=== PATIENT | male | born 1960 | race Caucasian/White ===

== ENCOUNTER → 2020-02-26 | Outpatient (CLI) | payer BC ==
[2020-02-26 08:31] LABS: Appearance,Urine Clear (Clear); Bilirubin,Urine Negative (Negative); Blood,Urine Negative (Negative); Color,Urine Yellow; Glucose,Urine (UA) Negative (Negative); Ketones,Urine Negative (Negative); Leukocyte Esterase,Urine Negative (Negative); Nitrite,Urine Negative (Negative); PH, Urine 6.5 (5.0-8.0); Protein,Urine Negative (Negative); Specific Gravity,Urine 1.015 (1.001-1.035); Urobilinogen,Urine <2.0 mg/dL (<2.0)
[2020-02-26 08:32] LABS: HCT 47.1 % (39.0-53.0); MCH 32.4 pg (25.0-35.0); MCV 95.6 fL (80.0-100.0); Mean Platelet Volume 6.7; Platelet Count 225 k/uL (150-450); RBC 4.93 m/uL (4.30-5.90); RDW 12.2 % (11.5-15.5); WBC 4.5 k/uL (3.8-10.6)
[2020-02-26 08:41] LABS: ALT 23 U/L (4-49); AST 31 U/L (17-59); African American GFR (CKD) >90 (>60 ml/min/1.73 sqM); Albumin 4.4 g/dL (3.5-5.0); Alkaline Phosphatase 104 U/L (38-126); Anion Gap 4 mmol/L; Blood Urea Nitrogen 13 mg/dL (9-20); Calcium 9.2 mg/dL (8.4-10.2); Carbon Dioxide 32 mmol/L (22-30); Chloride 101 mmol/L (98-107); Glucose 100 mg/dL (74-99); Non-African American GFR(CKD) 78 (>60 ml/min/1.73 sqM); Potassium 4.5 mmol/L (3.5-5.1); Sodium 137 mmol/L (137-145); Total Bilirubin 0.7 mg/dL (0.2-1.3); Total Protein 7.6 g/dL (6.3-8.2)
[2020-02-26 08:42] LABS: INR 0.9 (<1.2); Partial Thromboplastin Time 24.9 sec (22.0-30.0); Prothrombin Time 9.6 sec (9.0-12.0)
== END | disposition home or self-care (01) ==
LOC: LABPAT 07:23
PROVIDERS: ATTEND Orthopaedic Surgery
DX: Z01.818 Encounter for other preprocedural examination (principal); Z01.812 Encounter for preprocedural laboratory examination
CPT/HCPCS: 36415; 80053; 81003; 85027; 85610; 85730; 87070; 93005

== ENCOUNTER → 2020-05-03 | Day surgery (SDC) | payer BC ==
[2020-05-01 11:14] VITALS: BMI 25.8
[~2020-05-03] MED LIST: LACTATED RINGERS 1,000 ML IV ONE; LIDOCAINE 1% (10MG/ML) FOR IV START INTRADERMA ONE; LIDOCAINE 1% INJ 10MG/ML (20 ML MDV) ONE; PROPOFOL 10 MG/ML 20 ML VIAL IV ONE
[2020-05-03 09:16] VITALS: TEMP 97.7
--- NOTE | 2020-05-03 10:06 | P.PCN ---
Date of Procedure: 05/03/20 Procedure(s) Performed: BRIEF HISTORY: Patient is a 59-year-old, pleasant, white male scheduled for an upper endoscopy as a possible dilation for intermittent dysphagia to solids for the last several years duration.. PROCEDURE PERFORMED: Esophagogastroduodenoscopy with biopsy and dilation. PREOPERATIVE DIAGNOSIS: Intermittent dysphagia to solids. IV sedation per anesthesia. PROCEDURE: After informed consent was obtained, the patient was brought into the endoscopy unit. IV sedation was administered by Anesthesia under continuous monitoring. Initially the Olympus GIF-140 video endoscope was inserted into the mouth. Esophagus intubated without any difficulty. It was gradually advanced into the stomach and duodenum and carefully examined. The bulb and the second part of the duodenum appeared normal. The scope at this time was withdrawn to the stomach, adequately insufflated with air, and upon careful examination, mucosa of the antrum, body, cardia and the fundus appeared normal. The scope was then withdrawn into the esophagus. The GE junction was located at 42 cm from the incisors. There was a distal esophageal Schatzki's ring identified. At this time I proceeded with dilation with 18-20 mm balloon. The Schatzki's ring was dilated to 18 mm balloon for 30 seconds and there was brisk oozing identified and hence further dilation was not performed. There was a small mucosal tear at the site of dilation. There were 2 superficial erosions at the GE junction consistent with mild distal esophagitis. Biopsies were done from the distal esophagus. The rest of the esophagus appeared normal and the patient tolerated the procedure well. IMPRESSION: 1. Distal esophageal Schatzki's ring status post balloon dilation using 18 mm TTS balloon as described above. 2. Mild distal esophagitis. RECOMMENDATIONS: The findings of this examination were discussed with the patient as well as his family. He was advised to remain on a clear liquid diet for lunch today and soft diet for dinner. He was started on Prilosec 20 mg daily and follow antireflux measures. He'll be seen in office in 6 weeks. .
[2020-05-03 10:27] VITALS: PULSE 72
[2020-05-03 10:28] VITALS: BP 140/82; RESP 16
== END ==
LOC: ORWHC2ENDO 08:52
PROVIDERS: ATTEND Internal Medicine Gastroenterology
DX: K22.2 Esophageal obstruction (principal); K20.90 Esophagitis, unspecified without bleeding; K08.409 Partial loss of teeth, unspecified cause, unspecified class; I10 Essential (primary) hypertension; Z79.899 Other long term (current) drug therapy; Z98.890 Other specified postprocedural states
CPT/HCPCS: 88305; 43239; 43249; J2001; J2704; C1726